=== PATIENT | male | born 1995 | race Caucasian/White ===

== ENCOUNTER 2016-09-19 07:20 | Emergency (ER) | payer OTHER ==
[~2016-09-19] VITALS: Ht 195.6 cm; Wt 79.5 kg
[2016-09-19 07:23] VITALS: TEMP 37.6; Ht 195.6 cm; Wt 79.5 kg
[2016-09-19] MEDS ORDERED: KETOROLAC TROMETHAMINE 30 MG/ML VIAL IV STA (07:41)
[2016-09-19] MEDS ORDERED: ONDANSETRON INJ 2 MG/ML 2 ML VIAL IV STA (07:41)
[2016-09-19] MEDS ORDERED: SODIUM CHLORIDE 0.9% 1000ML 1,000 ML IV STA (07:41)
[2016-09-19] MEDS ORDERED: MoRPHine SULFATE 4 MG/ML 1 ML CARP\\VIAL IV STA (07:45)
[2016-09-19 08:06] LABS: MEAN CORPUSCULAR HEMOGLOBIN 32.8 pg (25-34); MEAN CORPUSCULAR HGB CONC 36.4 g/dl (32-36)
[2016-09-19 08:25] LABS: BUN/CREATININE RATIO 13.3 (10-20); CALCIUM 9.1 mg/dl (8.5-10.1); CREATININE 1.2 mg/dl (0.60-1.40); POTASSIUM 3.4 mmol/L (3.5-5.1)
[2016-09-19 08:32] LABS: BASO % 0.1 %; BASO ABS # 0.01 K/uL (0-0.2); COMPLETE YES; IG% 0.3 %; LARGE PLATELETS 1+; LYMPH % 4.9 %; LYMPH ABS # 0.92 K/uL (1.2-3.4); MEAN PLATELET VOLUME 12.7 fL (7.4-10.4); MONO % 9.1 %; NEUT % 85.6 %; PLATELET COUNT 129 K/uL (130-400)
--- NOTE | 2016-09-19 08:34 | DIAGNOSTIC IMAGING REPORT ---
CT LUMBAR SPINE WITHOUT CT DOSE: 1292.58 mGy.cm CLINICAL HISTORY: Lower back pain radiating into both lower extremities. TECHNIQUE: Axial images of the lumbar spine were obtained without IV contrast. Sagittal and coronal reconstructions were viewed. COMPARISON STUDY: None. FINDINGS: Alignment of the lumbar spine is anatomic. Vertebral body heights are maintained. There is no acute fracture. Disc spaces are preserved. Central canal and neural foramen are suboptimally assessed by CT. No significant central canal or neural foraminal stenosis is identified. Paravertebral soft tissues are unremarkable. Note is made of a right-sided L5 pars defect. There is no anterolisthesis. IMPRESSION: 1. No acute lumbar spine fracture or subluxation. 2. Patent central canal and neural foramen by CT. 3. 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 Electronically signed by: Gabe Cox M.D. 09/19/2016 8:32 AM Dictated Date/Time: 09/19/2016 8:29 AM
--- NOTE | 2016-09-19 08:40 | DIAGNOSTIC IMAGING REPORT ---
CT SCAN OF THE THORACIC SPINE WITHOUT IV CONTRAST CLINICAL HISTORY: Chronic low back pain. Lower extremity numbness. COMPARISON STUDY: MRI of the thoracic spine dated 09/01/2015. TECHNIQUE: CT scan of the thoracic spine is performed from the lower cervical spine to the upper lumbar spine. Images reviewed in the axial, sagittal, and coronal planes. IV contrast was not administered for this examination. FINDINGS: The skeletal structures are well mineralized. There is no evidence of fracture or malalignment. Vertebral body height and alignment are preserved throughout the thoracic spine. The transverse and spinous processes are intact. No lytic or blastic lesions are seen. The intervertebral disc spaces appear maintained. The central canal is clear as visualized. The paraspinous soft tissues are within normal limits. The visualized lung parenchyma appears clear. IMPRESSION: Unremarkable CT scan of the thoracic spine. Dictated: 09/19/2016 8:31 AM Transcribed: 09/19/2016 8:39 AM [email or web address] Electronically signed by: Dat Restrepo M.D. 09/19/2016 8:47 AM Dictated Date/Time: 09/19/2016 8:31 AM
--- NOTE | 2016-09-19 08:48 | EMERGENCY ROOM VISIT NOTE ---
History Report prepared by Kyleeibfeliciano: Keron Jc Under the Supervision of: Dr. Hosea Ribeiro D.O. First contact with patient: 07:29 Chief Complaint: LEG PAIN,LEG INJURY Stated Complaint: NUMBNESS IN LEGS/TROUBLE WALKING - VOMITING History of Present Illness The patient is a 21 year old male who presents to the Emergency Room with complaints of persistent bilateral leg discomfort that started 10 hours ago. The patient describes the discomfort as tingling, feeling heavy, and numbness in his lower legs. He notes that it feels like his legs are moving "slow" and like they are not "getting enough oxygen." The patient had work yesterday and thinks he might have lifted too many heavy things. Since then he has been having lower thoracic pain which is worse just out off of his spine and right sided lower back pain which feels like a fullness. He states that he has had similar symptoms in the past once or twice. He has a history of bulging discs in his back. The patient notes that he has had 3 episodes of vomiting since the discomfort started and also complains of some nausea currently. Pt denies headache, change in vision, fevers, chest pain, shortness of breath, diarrhea, pain with urination, melena, weakness in his legs, or numbness in his back or groin. No trauma, history of fevers or IV drug use. Source of History: patient Onset: 10 hours ago Position: leg (bilateral) Quality: tingling, numbness (in lower legs), other (feeling heavy) Timing: other (persistent) Associated Symptoms: + nausea, + vomiting, No SOB, No chest pain, No diarrhea, No fevers, No headache, No melena, No urinary symptoms, No weakness Note: Denies: vision changes, numbness in his back or groin Review of Systems See HPI for pertinent positives & negatives. A total of 10 systems reviewed and were otherwise negative. Past Medical & Surgical Medical Problems: (1) No pertinent past medical history Family History FH: cancer FH: diabetes mellitus Social History Smoking Status: Current Some Day Smoker Housing Status: lives with roommate Occupation Status: employed, student Current/Historical Medications No Active Prescriptions or Reported Meds Allergies Coded Allergies: No Known Allergies (Unverified , 09/19/16) Physical Exam Vital Signs Date Time Temp Pulse Resp B/P Pulse Ox O2 Delivery O2 Flow Rate FiO2 09/19/16 11:51 78 18 120/62 99 09/19/16 11:15 74 18 121/62 98 Room Air 09/19/16 07:55 88 18 133/79 100 Room Air 09/19/16 07:23 37.6 99 18 105/71 100 Room Air Physical Exam GENERAL: alert, well appearing, well nourished, no distress, non-toxic EYE EXAM: normal conjunctiva, PERRL and EOM's intact OROPHARYNX: no exudate, no erythema, lips, buccal mucosa, and tongue normal and mucous membranes are moist NECK: supple, no nuchal rigidity, no adenopathy, non-tender LUNGS: Clear to auscultation. Normal chest wall mechanics HEART: no murmurs, S1 normal and S2 normal ABDOMEN: abdomen soft, non-tender, normo-active bowel sounds, no masses, no rebound or guarding. BACK: Back is symmetrical on inspection and there is no deformity, no midline tenderness, no CVA tenderness. SKIN: no rashes and no bruising UPPER EXTREMITIES: upper extremities are grossly normal. LOWER EXTREMITIES: No pitting edema. Flexion/extension of hip, knee, ankle, EHL 5/5. Bilateral gross sensation is intact. Able to walk on heels and toes. NEURO EXAM: Normal sensorium, no difficulty ambulating in room. Medical Decision & Procedures ER Provider Diagnostic Interpretation: Radiology results as stated below per my review and the radiologist's interpretation: CT SCAN OF THE THORACIC SPINE WITHOUT IV CONTRAST CLINICAL HISTORY: Chronic low back pain. Lower extremity numbness. COMPARISON STUDY: MRI of the thoracic spine dated 09/01/2015. TECHNIQUE: CT scan of the thoracic spine is performed from the lower cervical spine to the upper lumbar spine. Images reviewed in the axial, sagittal, and coronal planes. IV contrast was not administered for this examination. FINDINGS: The skeletal structures are well mineralized. There is no evidence of fracture or malalignment. Vertebral body height and alignment are preserved throughout the thoracic spine. The transverse and spinous processes are intact. No lytic or blastic lesions are seen. The intervertebral disc spaces appear maintained. The central canal is clear as visualized. The paraspinous soft tissues are within normal limits. The visualized lung parenchyma appears clear. IMPRESSION: Unremarkable CT scan of the thoracic spine. Dictated: 09/19/2016 8:31 AM Transcribed: 09/19/2016 8:39 AM [email or web address] Electronically signed by: Dat Restrepo M.D. 09/19/2016 8:47 AM Dictated Date/Time: 09/19/2016 8:[address] LUMBAR SP[address] WITHOUT CT DOSE: 1292.58 mGy.cm CLINICAL HISTORY: Lower back pain radiating into both lower extremities. TECHNIQUE: Axial images of the lumbar spine were obtained without IV contrast. Sagittal and coronal reconstructions were viewed. COMPARISON STUDY: None. FINDINGS: Alignment of the lumbar spine is anatomic. Vertebral body heights are maintained. There is no acute fracture. Disc spaces are preserved. Central canal and neural foramen are suboptimally assessed by CT. No significant central canal or neural foraminal stenosis is identified. Paravertebral soft tissues are unremarkable. Note is made of a right-sided L5 pars defect. There is no anterolisthesis. IMPRESSION: 1. No acute lumbar spine fracture or subluxation. 2. Patent central canal and neural foramen by CT. 3. 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 Electronically signed by: Gabe Cox M.D. 09/19/2016 8:32 AM Dictated Date/Time: 09/19/2016 8:29 AM ABDOMINAL ULTRASOUND, RIGHT UPPER QUADRANT HISTORY: Elevated bilirubin. Leukocytosis and vomiting. COMPARISON: None. FINDINGS: The liver is sonographically normal. There is no biliary ductal dilatation. The common bile measures 4 mm in caliber. No gallstones are identified. There is minimal sludge within the gallbladder. No gallbladder wall thickening is present. There is no right hydronephrosis. The pancreas is sonographically normal although the head and tail are slightly obscured. IMPRESSION: 1. No gallstones or biliary ductal dilatation. 2. Minimal sludge within the gallbladder. No gallbladder wall thickening. Electronically signed by: Gabe Cox M.D. 09/19/2016 9:17 AM Dictated Date/Time: 09/19/2016 9:16 AM MRI OF THE THORACIC SPINE WITHOUT CONTRAST CLINICAL HISTORY: Trouble walking and lower extremity numbness. Leukocytosis. COMPARISON: MRI of the thoracic spine September 01, [address] performed earlier today. TECHNIQUE: Utilizing a 1.5 Carolyn magnet and dedicated coil, multiplanar, multiecho imaging of the thoracic spine was performed without IV contrast. FINDINGS: Alignment of the thoracic spine is anatomic. Vertebral body heights are maintained. There is no suspicious marrow replacement. Paravertebral soft tissues are unremarkable on this exam. This exam is mildly compromised by motion artifact. This affects evaluation of cervical cord signal. There is no definite cervical cord signal abnormality. Symmetric slight increased T2 signal within the lower thoracic cord is likely within normal limits. A small right posterior central disc protrusion at T4-T5 is noted. This is unchanged since MRI of September 01, 2015. There is also a small right paracentral disc protrusion at T5-T6. This is unchanged. No epidural fluid collection is identified. There is no evidence for discitis. IMPRESSION: 1. Exam compromised by motion artifact. No acute abnormality within the thoracic spine by MRI. 2. Small right paracentral disc protrusions at T4-T5 and T5-T6 which are unchanged as MRI of September 01, 2015. Electronically signed by: Gabe Cox M.D. 09/19/2016 10:31 AM Dictated Date/Time: 09/19/2016 10:15 AM MRI OF THE LUMBAR SPINE WITHOUT CONTRAST CLINICAL HISTORY: Trouble walking and lower extremity numbness. Leukocytosis. COMPARISON STUDY: Lumbar spine CT performed earlier today. TECHNIQUE: Utilizing a 1.5 Carolyn magnet and dedicated coil, multiplanar, multiecho imaging of the lumbar spine was performed without IV contrast. FINDINGS: For purposes of numbering on this exam, the L5-S1 disc space is assigned to axial image 27 of 30. Alignment of lumbar spine is anatomic. Vertebral body heights are maintained. The conus terminates at the upper L1 level. There is no intracanalicular mass or fluid collection. This study is mildly compromised by motion artifact. Paravertebral soft tissues are unremarkable. L1-2: The central canal and neural foramen are patent. L2-3: The central canal and neural foramen are patent. L3-4: The central canal and neural from are patent. L4-5: The central canal and neural foramen are patent. L5-S1: The central canal and neural foramen are patent. IMPRESSION: Unremarkable unenhanced MRI of the lumbar spine. Electronically signed by: Gabe Cox M.D. 09/19/2016 10:53 AM Dictated Date/Time: 09/19/2016 10:48 AM Laboratory Results 09/19/16 07:50 Red Blood Count 5.00, Mean Corpuscular Volume 90.0, Mean Corpuscular Hemoglobin 32.8, Mean Corpuscular Hemoglobin Concent 36.4, Mean Platelet Volume 12.7, Neutrophils (%) (Auto) 85.6, Lymphocytes (%) (Auto) 4.9, Monocytes (%) (Auto) 9.1, Eosinophils (%) (Auto) 0.0, Basophils (%) (Auto) 0.1, Neutrophils # (Auto) 16.09, Lymphocytes # (Auto) 0.92, Monocytes # (Auto) 1.72, Eosinophils # (Auto) 0.00, Basophils # (Auto) 0.01 09/19/16 07:50 Test 09/19/16 07:50 White Blood Count 18.80 K/uL (4.8-10.8) Red Blood Count 5.00 M/uL (4.7-6.1) Hemoglobin 16.4 g/dL (14.0-18.0) Hematocrit 45.0 % (42-52) Mean Corpuscular Volume 90.0 fL (80-100) Mean Corpuscular Hemoglobin 32.8 pg (25-34) Mean Corpuscular Hemoglobin Concent 36.4 g/dl (32-36) Platelet Count 129 K/uL (130-400) Mean Platelet Volume 12.7 fL (7.4-10.4) Neutrophils (%) (Auto) 85.6 % Lymphocytes (%) (Auto) 4.9 % Monocytes (%) (Auto) 9.1 % Eosinophils (%) (Auto) 0.0 % Basophils (%) (Auto) 0.1 % Neutrophils # (Auto) 16.09 K/uL (1.4-6.5) Lymphocytes # (Auto) 0.92 K/uL (1.2-3.4) Monocytes # (Auto) 1.72 K/uL (0.11-0.59) Eosinophils # (Auto) 0.00 K/uL (0-0.5) Basophils # (Auto) 0.01 K/uL (0-0.2) RDW Standard Deviation 40.9 fL (36.4-46.3) RDW Coefficient of Variation 12.5 % (11.5-14.5) Immature Granulocyte % (Auto) 0.3 % Immature Granulocyte # (Auto) 0.06 K/uL (0.00-0.02) Large Platelets 1+ Anion Gap 9.0 mmol/L (3-11) Est Creatinine Clear Calc Drug Dose 110.4 ml/min Estimated GFR () 100.3 Estimated GFR (Non- 86.5 BUN/Creatinine Ratio 13.3 (10-20) Calcium Level 9.1 mg/dl (8.5-10.1) Total Bilirubin 2.4 mg/dl (0.2-1) Direct Bilirubin 0.4 mg/dl (0-0.2) Aspartate Amino Transf (AST/SGOT) 29 U/L (15-37) Alanine Aminotransferase (ALT/SGPT) 37 U/L (12-78) Alkaline Phosphatase 62 U/L (45-117) Total Protein 7.5 gm/dl (6.4-8.2) Albumin 4.3 gm/dl (3.4-5.0) Laboratory results per my review. Medications Administered Medications (Trade) Dose Ordered Sig/Pat Route Start Time Stop Time Status Last Admin Dose Admin Sodium Chloride (Nss 1000ml) 1,000 ml @ 999 mls/hr Q1H1M STAT IV 09/19/16 07:41 09/19/16 08:41 DC 09/19/16 07:51 999 MLS/HR Ondansetron HCl (Zofran Inj) 4 mg NOW STAT IV 09/19/16 07:41 09/19/16 07:42 DC 09/19/16 07:51 4 MG Ketorolac Tromethamine (Toradol Inj) 30 mg NOW STAT IV 09/19/16 07:41 09/19/16 07:42 DC 09/19/16 07:51 30 MG Morphine Sulfate (MoRPHine SULFATE INJ) 4 mg NOW STAT IV 09/19/16 07:45 09/19/16 07:47 DC 09/19/16 07:53 4 MG ED Course ED COURSE: Vital signs were reviewed and showed tachycardic. The patients medical record was reviewed The above diagnostic studies were performed and reviewed. ED treatments and interventions as stated above. 0730: The patient was evaluated in room B10. A complete history and physical examination was performed. 0741: Ordered Toradol Inj 30 mg IV, Zofran Inj 4 mg IV, NSS 1000 ml @ 999 mls/ hr IV. 0745: Ordered Morphine Sulfate 4 mg IV. []: Upon reevaluation, the patient is [].I discussed my findings with the [ patient] and [] understands and agrees with the treatment plan. Based on the patients age, coexisting illnesses, exam and lab findings the decision to treat as an [inpatient][outpatient] was made. The patient remained stable while under my care. [The patient appeared well at the time of discharge.] [The patient will be evaluated for further management.] Medical Decision Differential diagnoses includes but is not limited to lumbar radiculopathy, muscle strain, facture, cauda equina, mass, and disc herniation. Patient is a 21-year-old male who presents the ER with numbness in his bilateral anterior shins and pain in his back. He also admits to a feeling of it being difficult to ambulate. Vitals are unremarkable, he is neurologically intact. Patellar and Achilles reflexes are intact. He is able to walk on heels and toes. No saddle paresthesias. CTs were performed and were unremarkable. He continued to state he was having trouble ambulating and with his white count of 18,000, MRIs were performed of the thoracic and lumbar spine which showed no acute pathology including abscess or bulging disc. He once again ambulate around the room without difficulty. There is no signs cauda equina on imaging. I favor the leukocytosis likely secondary to his vomiting. His bili was slightly elevated in all. Performed US of the gallbladder which was negative. He had no abdominal pain. Patient was updated reverse his findings I favor that this is likely musculoskeletal. Since he has reflexes this is clearly not GBS. Patient was updated regards to his symptoms and was discharged follow-up with PCP. Discussed with Pt concerning signs and symptoms to watch out for. Pt was instructed to follow up with their PCP and discussed with the patient their option to return to the ED at anytime for persistent or worsening symptoms. The appropriate anticipatory guidance and out-patient management, including indications for return to the emergency department, were explained at length to the patient and understood. Impression Primary Impression: Musculoskeletal back pain Additional Impressions: Vomiting Leukocytosis Scribe Attestation The scribe's documentation has been prepared under my direction and personally reviewed by me in its entirety. I confirm that the note above accurately reflects all work, treatment, procedures, and medical decision making performed by me. Departure Information Dispostion Home / Self-Care Prescriptions No Active Prescriptions or Reported Meds Referrals No Doctor, Assigned (PCP) Forms HOME CARE DOCUMENTATION FORM, IMPORTANT VISIT INFORMATION Patient Instructions My [facility] Additional Instructions Please follow up with your primary care doctor with in the next 24 hours or [facility]. Any worsening of your symptoms, please return to the ED immediately. This includes numbness in your groin, weakness in the legs, inability to walk, or any other concerning signs or symptoms from your standpoint. Please take Motrin or Tylenol as needed for pain. Problem Qualifiers Additional Impressions: Vomiting Vomiting type: unspecified Vomiting Intractability: unspecified Nausea presence: unspecified Qualified Codes: R11.10 - Vomiting, unspecified
--- NOTE | 2016-09-19 09:19 | DIAGNOSTIC IMAGING REPORT ---
ABDOMINAL ULTRASOUND, RIGHT UPPER QUADRANT HISTORY: Elevated bilirubin. Leukocytosis and vomiting. COMPARISON: None. FINDINGS: The liver is sonographically normal. There is no biliary ductal dilatation. The common bile measures 4 mm in caliber. No gallstones are identified. There is minimal sludge within the gallbladder. No gallbladder wall thickening is present. There is no right hydronephrosis. The pancreas is sonographically normal although the head and tail are slightly obscured. IMPRESSION: 1. No gallstones or biliary ductal dilatation. 2. Minimal sludge within the gallbladder. No gallbladder wall thickening. Electronically signed by: Gabe Cox M.D. 09/19/2016 9:17 AM Dictated Date/Time: 09/19/2016 9:16 AM
--- NOTE | 2016-09-19 10:33 | DIAGNOSTIC IMAGING REPORT ---
MRI OF THE THORACIC SPINE WITHOUT CONTRAST CLINICAL HISTORY: Trouble walking and lower extremity numbness. Leukocytosis. COMPARISON: MRI of the thoracic spine September 01, [address] performed earlier today. TECHNIQUE: Utilizing a 1.5 Carolyn magnet and dedicated coil, multiplanar, multiecho imaging of the thoracic spine was performed without IV contrast. FINDINGS: Alignment of the thoracic spine is anatomic. Vertebral body heights are maintained. There is no suspicious marrow replacement. Paravertebral soft tissues are unremarkable on this exam. This exam is mildly compromised by motion artifact. This affects evaluation of cervical cord signal. There is no definite cervical cord signal abnormality. Symmetric slight increased T2 signal within the lower thoracic cord is likely within normal limits. A small right posterior central disc protrusion at T4-T5 is noted. This is unchanged since MRI of September 01, 2015. There is also a small right paracentral disc protrusion at T5-T6. This is unchanged. No epidural fluid collection is identified. There is no evidence for discitis. IMPRESSION: 1. Exam compromised by motion artifact. No acute abnormality within the thoracic spine by MRI. 2. Small right paracentral disc protrusions at T4-T5 and T5-T6 which are unchanged as MRI of September 01, 2015. Electronically signed by: Gabe Cox M.D. 09/19/2016 10:31 AM Dictated Date/Time: 09/19/2016 10:15 AM
--- NOTE | 2016-09-19 10:55 | DIAGNOSTIC IMAGING REPORT ---
MRI OF THE LUMBAR SPINE WITHOUT CONTRAST CLINICAL HISTORY: Trouble walking and lower extremity numbness. Leukocytosis. COMPARISON STUDY: Lumbar spine CT performed earlier today. TECHNIQUE: Utilizing a 1.5 Carolyn magnet and dedicated coil, multiplanar, multiecho imaging of the lumbar spine was performed without IV contrast. FINDINGS: For purposes of numbering on this exam, the L5-S1 disc space is assigned to axial image 27 of 30. Alignment of lumbar spine is anatomic. Vertebral body heights are maintained. The conus terminates at the upper L1 level. There is no intracanalicular mass or fluid collection. This study is mildly compromised by motion artifact. Paravertebral soft tissues are unremarkable. L1-2: The central canal and neural foramen are patent. L2-3: The central canal and neural foramen are patent. L3-4: The central canal and neural from are patent. L4-5: The central canal and neural foramen are patent. L5-S1: The central canal and neural foramen are patent. IMPRESSION: Unremarkable unenhanced MRI of the lumbar spine. Electronically signed by: Gabe Cox M.D. 09/19/2016 10:53 AM Dictated Date/Time: 09/19/2016 10:48 AM
[2016-09-19 11:51] VITALS: BP 120/62; PULSE 78; O2SAT 99
== END 2016-09-19 11:55 | disposition home or self-care (01) ==
LOC: C.EDB 07:22
DX: M54.9 Dorsalgia, unspecified (principal); R11.10 Vomiting, unspecified; D72.829 Elevated white blood cell count, unspecified; Z83.3 Family history of diabetes mellitus; F17.200 Nicotine dependence, unspecified, uncomplicated

== ENCOUNTER 2016-12-08 21:36 | Emergency (ER) | payer OTHER ==
[~2016-12-08] VITALS: Ht 195.6 cm; Wt 77.7 kg
[2016-12-08 21:40] VITALS: TEMP 37.1; Ht 195.6 cm; Wt 77.7 kg
[2016-12-08] MEDS ORDERED: ONDANSETRON 4MG OD TAB PO ONE (22:00)
[2016-12-08] MEDS ORDERED: OXYCODONE HCL IR 5 MG TAB (IMMEDIATE RELEASE) PO STA ×2 (22:00→23:32)
[2016-12-08] MEDS ORDERED: IBUP-103 PO (22:11)
[2016-12-08] MEDS ORDERED: ONDANSETRON HOME PACK 4MG OD TAB PO ONE (22:45)
[2016-12-08] MEDS ORDERED: OXYCODONE IR HOME PACK PO ONE (22:45)
[2016-12-08] MEDS ORDERED: DEXAMETHASONE SOD INJ 10 MG/ML VIAL PO ONE (22:45)
[2016-12-08] MEDS ORDERED: OXYC1TAB3 PO (23:50)
[2016-12-09 00:40] VITALS: BP 135/59; PULSE 65; O2SAT 99
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
--- NOTE | 2016-12-09 06:45 | DIAGNOSTIC IMAGING REPORT ---
LEFT CLAVICLE CLINICAL HISTORY: fall, left trauma. Pain. COMPARISON: None. DISCUSSION: Complete separation left acromioclavicular joint. No well-defined evidence for fracture. Medial aspect of the clavicle appears to be aligned appropriately. There is no evidence for soft tissue swelling. IMPRESSION: Complete separation left acromioclavicular joint. Electronically signed by: Danie Lerner M.D. 12/09/2016 6:44 AM Dictated Date/Time: 12/09/2016 6:43 AM
--- NOTE | 2016-12-09 06:46 | DIAGNOSTIC IMAGING REPORT ---
LEFT SHOULDER MIN 2 VIEWS ROUTINE CLINICAL HISTORY: fall trauma. Pain. COMPARISON: None. DISCUSSION: Complete separation left acromioclavicular joint. Glenohumeral joint appears unremarkable. There are no abnormal soft tissue calcifications. There is no evidence for soft tissue swelling. IMPRESSION: Complete separation left acromioclavicular joint. Electronically signed by: Danie Lerner M.D. 12/09/2016 6:44 AM Dictated Date/Time: 12/09/2016 6:44 AM
== END 2016-12-09 00:40 | disposition home or self-care (01) ==
LOC: EDBD 21:36 → C.EDC 21:39
DX: S43.102A Unspecified dislocation of left acromioclavicular joint, initial encounter (principal); S60.511A Abrasion of right hand, initial encounter; S60.512A Abrasion of left hand, initial encounter; S40.811A Abrasion of right upper arm, initial encounter; S40.812A Abrasion of left upper arm, initial encounter; Z83.3 Family history of diabetes mellitus; V18.0XXA Pedal cycle driver injured in noncollision transport accident in nontraffic accident, initial encounter; Y93.55 Activity, bike riding